=== PATIENT | male | born 1985 | race Caucasian/White ===

== ENCOUNTER 2016-07-08 05:26 | Emergency (ER) | payer OTHER ==
[~2016-07-08] VITALS: Ht 172.7 cm; Wt 82.0 kg
[~2016-07-08 05:26] MED LIST: AMITRIPTYLINE H50 MG PO; AMITRIPTYLINE H75 MG PO; AUGMENTIN875 MG PO; CATAPRES0.1 MG PO; Ceftin PO; DICYCLOMINE HCL20 MG PO; DOLOPHINE HCL10 MG PO; DURAGESIC100 MICROG TD; ELAVIL25 MG PO; ENDOCET 5-3251 EACH PO; FENTANYL1 EAC3 TD; FENTANYL1 EAC4 TD; FEOSOL325 MG PO; FERROUS SULFAT325 MG PO; K-Dur PO; LANTUS 10100 UNITS/ SC; LANTUS 3 M100 UNITS/ SC; LANTUS 3 M100 UNITS1; LANTUS 3 M100 UNITS1 SC; LANTUS100 UNIT/1 SQ; LEVEMIR FL100 UNIT/1 SC; LEVEMIR FL100 UNITS/ SC; LYRICA100 MG PO; LYRICA150 MG PO; LYRICA50 MG PO; MAG-OX400 M1 PO; METHADONE10 MG PO; METHADONE5 MG PO; METOCLOPRAM; NOVOLOG (UNITS1 UNIT SC; NOVOLOG 10100 UNITS/ SC; NOVOLOG PE100 UNITS/ PO; NOVOLOG PE100 UNITS/ SC; NOVOLOG100 UNIT/1 SQ; NUCYNTA50 MG PO; Norvasc PO; OPANA ER40 MG PO; OXYCODONE HCL15 MG PO; OXYCODONE HCL5 MG PO; OXYCODONE-APAP1 EAC6 PO; OXYCODONE15 MG PO; OXYCONTIN30 MG PO; OXYCONTIN40 MG PO; OxyCONTIN PO; PANCREAZE 10,51 EACH PO; PANTOPRAZOLE SO40 MG PO; PERCOCET 5-3251 EACH PO; PERCOCET 7.51 TABLET PO; PROMETHAZINE HC25 M1 PO; PROTONIX40 MG PO; Percocet 10/325,Endo PO; Protonix PO; RAMIPRIL10 MG PO; REGLAN10 MG PO; Reglan PO; SENNA-TIME S T1 EACH PO; TIZANIDINE HCL2 MG PO; TRAZODONE HCL50 MG PO; Zestril,Prinivil PO; oxyCODONE PO
[2016-07-08 05:44] LABS: POINT-OF-CARE METER ID UU13113778
[2016-07-08 06:25] LABS: HEMATOCRIT 28.7 % (38.0-50.0); MCH 29.1 PG (29.0-34.0); MCHC 34.1 G/DL (30.0-36.0); MCV 85.2 FL (86-99); MEAN PLAT.VOLUME 9.5 uM^3 (9.0-12.4); PLATELET COUNT 423 K/uL (156-360); RBC DIS.WIDTH-CV 14.2 % (11.8-14.6); RBC DIS.WIDTH-SD 42.4 % (39-53); RED BLOOD COUNT 3.37 M/uL (4.00-5.50); WHITE BLOOD COUNT 7.3 K/uL (4.1-10.2)
[2016-07-08 06:37] LABS: CHLORIDE 100 mEq/L (99-109); POTASSIUM 4.3 mEq/L (3.7-5.4); SODIUM 134 mEq/L (136-147)
[2016-07-08 06:38] LABS: GLUCOSE 348 mg/dL (70-99)
[2016-07-08 06:40] LABS: ANION GAP 13 MEQ/L (2-14)
[2016-07-08 06:42] LABS: GFR ESTIMATE (CALCULATED) > 59 mL/min/
[2016-07-08 06:43] LABS: UREA NITROGEN (BUN) 12 mg/dL (9-23)
[2016-07-08 08:27] LABS: ADD MIUA? YES; BILIRUBIN NEGATIVE; BLOOD MODERATE; COLOR YELLOW ((YELLOW)); GLUCOSE (STRIP) >=1000; KETONES 15; LEUKOCYTES NEGATIVE; NITRITE NEGATIVE; PROTEIN (STRIP) 30; SPECIFIC GRAVITY 1.033 (1.000-1.030)
[2016-07-08 08:44] LABS: BACTERIA NONE SEEN; CASTS NONE SEEN /LPF; CRYSTALS NONE SEEN; EPITHELIAL CELLS RARE; MUCUS NONE SEEN; PATHOLOGICAL CAST NONE SEEN; SMALL ROUND CELL NONE SEEN; UCUL ADDED? NO; WHITE BLOOD CELLS 0-5 /HPF (0-5); YEAST-LIKE CELL NONE SEEN
[2016-07-08 12:27] VITALS: BP 145/93
== END 2016-07-08 12:41 | disposition home or self-care (01) ==
LOC: EME 05:26
PROVIDERS: Emergency Medicine
DX: E11.65 Type 2 diabetes mellitus with hyperglycemia (principal); R11.2 Nausea with vomiting, unspecified; E86.0 Dehydration; G89.29 Other chronic pain; Z79.4 Long term (current) use of insulin; Z79.891 Long term (current) use of opiate analgesic; F17.200 Nicotine dependence, unspecified, uncomplicated
CPT/HCPCS: 80048; 81003; 82009; 82948; 83605; 85027; 99281; 99285; J2270; J2405; J7030

== ENCOUNTER 2016-10-14 12:05 | Inpatient (IN) | payer OTHER ==
[~2016-10-14] VITALS: Ht 172.7 cm; Wt 101.0 kg
[2016-10-14 12:59] LABS: EOSINOPHIL (%) 0.9 % (0-5); EOSINOPHIL COUNT 0.2 K/uL (0-0.3); HEMATOCRIT 22.9 % (38.0-50.0); IMMATURE GRANULOCYTE COUNT 0.2 K/uL; INSTRUMENT ABS NEUTROPHIL CT 13.5 K/uL; LYMPHOCYTE COUNT 2.6 K/uL (1.0-2.8); MCH 28.4 PG (29.0-34.0); MCHC 33.2 G/DL (30.0-36.0); MCV 85.4 FL (86-99); MEAN PLAT.VOLUME 8.9 uM^3 (9.0-12.4); MONOCYTE (%) 4.1 % (3-12); MONOCYTE COUNT 0.7 K/uL (0-0.8); NEUTROPHIL (%) 78.6 % (45-76); NEUTROPHIL COUNT 13.5 K/uL (1.8-6.4); PLATELET COUNT 543 K/uL (156-360); RBC DIS.WIDTH-CV 12.7 % (11.8-14.6); RBC DIS.WIDTH-SD 39.5 % (39-53); RED BLOOD COUNT 2.68 M/uL (4.00-5.50); WHITE BLOOD COUNT 17.2 K/uL (4.1-10.2)
[2016-10-14 13:09] LABS: CHLORIDE 92 mEq/L (99-109); POTASSIUM 4.1 mEq/L (3.7-5.4); SODIUM 131 mEq/L (136-147)
[2016-10-14 13:11] LABS: GLUCOSE 246 mg/dL (70-99)
[2016-10-14 13:12] LABS: ANION GAP 12 MEQ/L (2-14)
[2016-10-14 13:14] LABS: GFR ESTIMATE (CALCULATED) > 59 mL/min/
[2016-10-14 13:15] LABS: UREA NITROGEN (BUN) 13 mg/dL (9-23)
[2016-10-14] MEDS ORDERED: SANTYL30 GM TP (14:36)
[2016-10-14] MEDS ORDERED: ZOFRAN4 MG PO (14:36)
[2016-10-14] MEDS ORDERED: NOVOLOG 10100 UNITS/ SC (14:38)
[2016-10-14 16:18] LABS: POINT-OF-CARE METER ID UU13113702
[2016-10-14 17:02] LABS: ADD MIUA? YES; BILIRUBIN NEGATIVE; BLOOD MODERATE; COLOR YELLOW ((YELLOW)); GLUCOSE (STRIP) >=500; KETONES 5; LEUKOCYTES NEGATIVE; NITRITE NEGATIVE; PROTEIN (STRIP) 100; SPECIFIC GRAVITY 1.015 (1.000-1.030); UROBILINOGEN 0.2 MG/DL (0.2-1.0)
[2016-10-14 17:04] LABS: BACTERIA NONE SEEN /HPF; EPITHELIAL CELLS RARE /HPF; HYALINE CASTS 15-20 /LPF; MUCUS TRACE /LPF; RED BLOOD CELLS 0-5 /HPF (0-5); UCUL ADDED? NO; WHITE BLOOD CELLS 0-5 /HPF (0-5)
[2016-10-15 07:05] LABS: EOSINOPHIL (%) 1.3 % (0-5); EOSINOPHIL COUNT 0.2 K/uL (0-0.3); HEMATOCRIT 23.5 % (38.0-50.0); IMMATURE GRANULOCYTE (%) 1.5 % (0.0-0.7); IMMATURE GRANULOCYTE COUNT 0.2 K/uL; INSTRUMENT ABS NEUTROPHIL CT 9.8 K/uL; LYMPHOCYTE COUNT 2.2 K/uL (1.0-2.8); MCH 27.6 PG (29.0-34.0); MCHC 31.5 G/DL (30.0-36.0); MCV 87.7 FL (86-99); MEAN PLAT.VOLUME 9.2 uM^3 (9.0-12.4); MONOCYTE (%) 5.1 % (3-12); MONOCYTE COUNT 0.7 K/uL (0-0.8); NEUTROPHIL (%) 74.9 % (45-76); NEUTROPHIL COUNT 9.8 K/uL (1.8-6.4); PLATELET COUNT 406 K/uL (156-360); RBC DIS.WIDTH-CV 13.2 % (11.8-14.6); RBC DIS.WIDTH-SD 42.2 % (39-53); RED BLOOD COUNT 2.68 M/uL (4.00-5.50); WHITE BLOOD COUNT 13.1 K/uL (4.1-10.2)
[2016-10-15 07:50] LABS: ANION GAP 8 MEQ/L (2-14); CHLORIDE 97 MEQ/L (99-109); GFR ESTIMATE (CALCULATED) > 59 mL/min/; POTASSIUM 4.6 MEQ/L (3.7-5.4); SAMPLE HEMOLYSIS CHECK 0; SAMPLE ICTERIC CHECK 0; SAMPLE LIPEMIA CHECK 0; SODIUM 131 MEQ/L (136-147); UREA NITROGEN (BUN) 13 mg/dL (9-23)
[2016-10-15 07:51] LABS: GLUCOSE 476 mg/dL (70-99)
[2016-10-15 08:12] VITALS: BP 146/82
[2016-10-15 11:51] LABS: POINT-OF-CARE METER ID UU13113807
[2016-10-15 12:00] VITALS: BP 124/79
[2016-10-15 12:20] LABS: POINT-OF-CARE METER ID UU13113807
[2016-10-15 12:49] LABS: POINT-OF-CARE METER ID UU13113807
[2016-10-15 16:00] VITALS: BP 139/94
[2016-10-15 17:47] LABS: POINT-OF-CARE METER ID UU14149398
[2016-10-15 19:55] VITALS: BP 143/67
[2016-10-15 21:40] LABS: POINT-OF-CARE METER ID UU14149398
[2016-10-15 23:44] VITALS: BP 115/59
[2016-10-16 05:05] VITALS: BP 140/72
[2016-10-16 07:38] LABS: POINT-OF-CARE METER ID UU14149398
[2016-10-16 07:42] LABS: Estimated Average Glucose 344 mg/dL (70-123); HEMOGLOBIN A1c (GLYCOHEMOGLOB) 13.6 % HGB (Below 5.7)
[2016-10-16 08:38] VITALS: BP 121/74
[2016-10-16 12:00] VITALS: BP 120/69
[2016-10-16 12:41] LABS: POINT-OF-CARE METER ID UU14149398
[2016-10-16 16:00] VITALS: BP 149/94
[2016-10-16 16:57] LABS: POINT-OF-CARE METER ID UU14149398
[2016-10-16 19:48] VITALS: BP 122/76
[2016-10-16 21:04] LABS: POINT-OF-CARE METER ID UU14149398
[2016-10-17 00:13] VITALS: BP 135/81
[2016-10-17 03:40] LABS: POINT-OF-CARE METER ID UU14149398
[2016-10-17 04:32] VITALS: BP 129/79
[2016-10-17 08:02] LABS: GFR ESTIMATE (CALCULATED) > 59 mL/min/
[2016-10-17 08:03] VITALS: BP 130/80
[2016-10-17 08:37] LABS: POINT-OF-CARE METER ID UU14149398
[2016-10-17 09:25] LABS: AMPHETAMINES QUANT VALUE 0 NG/ML; BARBITUATES QUANT VALUE 0 NG/ML; BENZODIAZEPINES QUANT VALUE 0 NG/ML; BENZODIAZEPINES, URINE SCREEN Negative (200 ng/mL); MARIJUANA QUANT VALUE 0 NG/ML; OPIATES QUANTITATIVE VALUE 0 NG/ML; PHENCYCLIDINE QUANT VALUE 0 NG/ML
[2016-10-17 11:58] LABS: POINT-OF-CARE METER ID UU14149398
[2016-10-17 14:30] VITALS: BP 136/97
[2016-10-17 14:57] LABS: POINT-OF-CARE METER ID UU14149398
[2016-10-17 17:33] LABS: POINT-OF-CARE METER ID UU13113675
[2016-10-17 19:34] VITALS: BP 159/90
[2016-10-17 19:45] LABS: POINT-OF-CARE METER ID UU14149398
[2016-10-17 20:22] LABS: POINT-OF-CARE METER ID UU14149398; POINT-OF-CARE USER ID STWHLR41
[2016-10-17 20:29] LABS: POINT-OF-CARE METER ID UU14149398; POINT-OF-CARE USER ID STWHLR41
[2016-10-17 21:33] LABS: POINT-OF-CARE METER ID UU14149398
[2016-10-17 23:45] VITALS: BP 120/59
[2016-10-18] VITALS (13 sets, daily range): BP systolic 107–150; BP diastolic 7–91
[2016-10-18 03:23] LABS: POINT-OF-CARE METER ID UU14149398
[2016-10-18 07:01] LABS: HEMATOCRIT 21.9 % (38.0-50.0); MCH 26.9 PG (29.0-34.0); MCHC 30.1 G/DL (30.0-36.0); MCV 89.4 FL (86-99); MEAN PLAT.VOLUME 9.4 uM^3 (9.0-12.4); PLATELET COUNT 493 K/uL (156-360); RBC DIS.WIDTH-CV 13.6 % (11.8-14.6); RBC DIS.WIDTH-SD 44.6 % (39-53); RED BLOOD COUNT 2.45 M/uL (4.00-5.50); WHITE BLOOD COUNT 15.2 K/uL (4.1-10.2)
[2016-10-18 07:10] LABS: ANION GAP 9 MEQ/L (2-14); CHLORIDE 101 MEQ/L (99-109); GFR ESTIMATE (CALCULATED) > 59 mL/min/; POTASSIUM 4.6 MEQ/L (3.7-5.4); SAMPLE HEMOLYSIS CHECK 0; SAMPLE ICTERIC CHECK 0; SAMPLE LIPEMIA CHECK 0; SODIUM 133 MEQ/L (136-147); UREA NITROGEN (BUN) 18 mg/dL (9-23)
[2016-10-18 07:12] LABS: GLUCOSE 221 mg/dL (70-99)
[2016-10-18 08:17] LABS: POINT-OF-CARE METER ID UU14149398
[2016-10-18 11:27] LABS: POINT-OF-CARE METER ID UU14149398
[2016-10-18 16:02] LABS: POINT-OF-CARE METER ID UU13113807
[2016-10-18 21:16] LABS: POINT-OF-CARE METER ID UU13113807
[2016-10-19] VITALS (9 sets, daily range): BP systolic 125–169; BP diastolic 78–99
[2016-10-19 02:49] LABS: POINT-OF-CARE METER ID UU13113807
[2016-10-19 06:25] LABS: GFR ESTIMATE (CALCULATED) > 59 mL/min/
[2016-10-19 06:26] LABS: ANION GAP 9 MEQ/L (2-14); CHLORIDE 96 MEQ/L (99-109); GFR ESTIMATE (CALCULATED) > 59 mL/min/; GLUCOSE 175 mg/dL (70-99); POTASSIUM 4.5 MEQ/L (3.7-5.4); SAMPLE HEMOLYSIS CHECK 0; SAMPLE ICTERIC CHECK 0; SAMPLE LIPEMIA CHECK 0; SODIUM 131 MEQ/L (136-147); UREA NITROGEN (BUN) 22 mg/dL (9-23)
[2016-10-19 06:28] LABS: HEMATOCRIT 27.5 % (38.0-50.0); MCH 27.9 PG (29.0-34.0); MCHC 31.6 G/DL (30.0-36.0); MCV 88.1 FL (86-99); MEAN PLAT.VOLUME 9.4 uM^3 (9.0-12.4); PLATELET COUNT 486 K/uL (156-360); RBC DIS.WIDTH-CV 13.8 % (11.8-14.6); RBC DIS.WIDTH-SD 44.3 % (39-53)
[2016-10-19 07:00] LABS: RED BLOOD COUNT 3.12 M/uL (4.00-5.50); WHITE BLOOD COUNT 10.3 K/uL (4.1-10.2)
[2016-10-19 08:05] LABS: POINT-OF-CARE METER ID UU13113807
[2016-10-19 13:05] LABS: POINT-OF-CARE METER ID UU13113807
[2016-10-19 18:02] LABS: POINT-OF-CARE METER ID UU13113807
[2016-10-19 21:23] LABS: POINT-OF-CARE METER ID UU13113807
[2016-10-20 03:00] VITALS: BP 127/82
[2016-10-20 03:24] LABS: POINT-OF-CARE METER ID UU13113807
[2016-10-20 07:36] VITALS: BP 142/58
[2016-10-20 07:41] LABS: HEMATOCRIT 27.9 % (38.0-50.0); MCH 27.7 PG (29.0-34.0); MCHC 31.5 G/DL (30.0-36.0); MCV 87.7 FL (86-99); MEAN PLAT.VOLUME 9.4 uM^3 (9.0-12.4); PLATELET COUNT 602 K/uL (156-360); RBC DIS.WIDTH-CV 14.1 % (11.8-14.6); RBC DIS.WIDTH-SD 45.3 % (39-53); RED BLOOD COUNT 3.18 M/uL (4.00-5.50); WHITE BLOOD COUNT 10.8 K/uL (4.1-10.2)
[2016-10-20 08:18] LABS: ANION GAP 9 MEQ/L (2-14); CHLORIDE 96 MEQ/L (99-109); GFR ESTIMATE (CALCULATED) > 59 mL/min/; SAMPLE HEMOLYSIS CHECK 0; SAMPLE ICTERIC CHECK 0; SAMPLE LIPEMIA CHECK 0; SODIUM 133 MEQ/L (136-147); UREA NITROGEN (BUN) 28 mg/dL (9-23)
[2016-10-20 08:19] LABS: GLUCOSE 305 mg/dL (70-99)
[2016-10-20 11:01] VITALS: BP 140/92
[2016-10-20 12:25] LABS: POINT-OF-CARE METER ID UU13113807
[2016-10-20 15:40] VITALS: BP 138/88
[2016-10-20 17:21] LABS: POINT-OF-CARE METER ID UU13113807
[2016-10-20 19:20] VITALS: BP 143/98
[2016-10-20 21:51] LABS: POINT-OF-CARE METER ID UU13113807
[2016-10-20 23:10] VITALS: BP 123/82
[2016-10-21 03:00] VITALS: BP 119/70
[2016-10-21 03:30] LABS: POINT-OF-CARE METER ID UU13113807
[2016-10-21 07:43] VITALS: BP 120/75
[2016-10-21 08:48] LABS: POINT-OF-CARE METER ID UU13113807
[2016-10-21 13:01] LABS: POINT-OF-CARE METER ID UU13113807
[2016-10-21 15:47] VITALS: BP 139/75
[2016-10-21 17:37] LABS: POINT-OF-CARE METER ID UU13113807
[2016-10-21 21:01] VITALS: BP 130/80
[2016-10-22 00:44] VITALS: BP 110/55
[2016-10-22 03:31] LABS: POINT-OF-CARE METER ID UU14149398
[2016-10-22 08:00] VITALS: BP 128/80
[2016-10-22 08:35] LABS: POINT-OF-CARE METER ID UU14149398
[2016-10-22 11:51] LABS: POINT-OF-CARE METER ID UU13113807
[2016-10-22 11:52] LABS: POINT-OF-CARE METER ID UU13113807
[2016-10-22 12:00] VITALS: BP 128/74
[2016-10-22 12:40] LABS: POINT-OF-CARE METER ID UU14149398
[2016-10-22 16:00] VITALS: BP 152/72
[2016-10-22 17:31] LABS: POINT-OF-CARE METER ID UU14149398
[2016-10-22 20:50] VITALS: BP 120/50
[2016-10-22 21:39] LABS: POINT-OF-CARE METER ID UU14149398
[2016-10-23 00:17] VITALS: BP 110/60
[2016-10-23 03:40] LABS: POINT-OF-CARE METER ID UU13113807
[2016-10-23 05:14] VITALS: BP 110/55
[2016-10-23 08:44] VITALS: BP 115/70
[2016-10-23 08:51] LABS: POINT-OF-CARE METER ID UU13113807
[2016-10-23 10:13] LABS: ANION GAP 7 MEQ/L (2-14); CHLORIDE 99 MEQ/L (99-109); POTASSIUM 5.1 MEQ/L (3.7-5.4); SAMPLE HEMOLYSIS CHECK 0; SAMPLE ICTERIC CHECK 0; SAMPLE LIPEMIA CHECK 0; SODIUM 134 MEQ/L (136-147)
[2016-10-23 10:19] LABS: GFR ESTIMATE (CALCULATED) > 59 mL/min/; GLUCOSE 219 mg/dL (70-99); UREA NITROGEN (BUN) 32 mg/dL (9-23)
[2016-10-23 12:29] LABS: POINT-OF-CARE METER ID UU13113807
[2016-10-23 15:42] VITALS: BP 120/79
[2016-10-23 17:31] LABS: POINT-OF-CARE METER ID UU13113807
[2016-10-23 20:00] VITALS: BP 124/84
[2016-10-23 22:23] LABS: POINT-OF-CARE METER ID UU13113807
[2016-10-24] VITALS (7 sets, daily range): BP systolic 115–149; BP diastolic 62–100
[2016-10-24 03:08] LABS: POINT-OF-CARE METER ID UU13113807
[2016-10-24 08:32] LABS: POINT-OF-CARE METER ID UU13113698
[2016-10-24 11:37] LABS: POINT-OF-CARE METER ID UU13113698
[2016-10-24 15:35] LABS: POINT-OF-CARE METER ID UU13113698
[2016-10-24 17:08] LABS: POINT-OF-CARE METER ID UU13113698
[2016-10-25 03:20] VITALS: BP 122/62
[2016-10-25 03:34] LABS: POINT-OF-CARE METER ID UU13113698
[2016-10-25 04:14] LABS: POINT-OF-CARE METER ID UU13113698
[2016-10-25 05:00] LABS: CHLORIDE 101 mEq/L (99-109); POTASSIUM 4.4 mEq/L (3.7-5.4); SODIUM 138 mEq/L (136-147)
[2016-10-25 05:02] LABS: GLUCOSE 100 mg/dL (70-99)
[2016-10-25 05:03] LABS: ANION GAP 11 MEQ/L (2-14)
[2016-10-25 05:05] LABS: GFR ESTIMATE (CALCULATED) > 59 mL/min/
[2016-10-25 05:06] LABS: UREA NITROGEN (BUN) 35 mg/dL (9-23)
[2016-10-25 08:13] VITALS: BP 135/85
[2016-10-25 08:54] LABS: POINT-OF-CARE METER ID UU13113698
[2016-10-25 12:56] LABS: POINT-OF-CARE METER ID UU13113698
[2016-10-25 15:30] VITALS: BP 136/85
[2016-10-25 17:25] LABS: POINT-OF-CARE METER ID UU13113698
[2016-10-25 20:09] LABS: POINT-OF-CARE METER ID UU13113698
[2016-10-25 20:16] VITALS: BP 134/88
[2016-10-25 21:32] LABS: POINT-OF-CARE METER ID UU13113698
[2016-10-26 00:04] VITALS: BP 123/74; BP 148/80
[2016-10-26 00:07] VITALS: BP 123/74
[2016-10-26 03:42] LABS: POINT-OF-CARE METER ID UU13113698
[2016-10-26 05:00] VITALS: BP 116/73
[2016-10-26 07:38] VITALS: BP 120/84
[2016-10-26 08:31] LABS: POINT-OF-CARE METER ID UU13113698
[2016-10-26 12:07] LABS: POINT-OF-CARE METER ID UU13113698
[2016-10-26 15:38] LABS: POINT-OF-CARE METER ID UU13113698
[2016-10-26 16:15] VITALS: BP 131/64
[2016-10-26 16:51] LABS: POINT-OF-CARE METER ID UU13113698
[2016-10-26 21:20] VITALS: BP 134/76
[2016-10-27 03:53] VITALS: BP 138/81
[2016-10-27 04:14] LABS: POINT-OF-CARE METER ID UU13113807
[2016-10-27 05:30] VITALS: BP 121/74
[2016-10-27 08:20] VITALS: BP 138/91
[2016-10-27 09:12] LABS: POINT-OF-CARE METER ID UU13113807
[2016-10-27 12:05] VITALS: BP 134/86
[2016-10-27 12:06] LABS: POINT-OF-CARE METER ID UU13113698
[2016-10-27 12:14] LABS: POINT-OF-CARE METER ID UU13113698; POINT-OF-CARE USER ID AHSUCEG
[2016-10-27 14:18] LABS: POINT-OF-CARE METER ID UU13113807
[2016-10-27 17:49] LABS: POINT-OF-CARE METER ID UU13113807
[2016-10-27 22:08] LABS: POINT-OF-CARE METER ID UU13113698
[2016-10-28] VITALS: BP 120/72
[2016-10-28 03:18] LABS: POINT-OF-CARE METER ID UU13113807
[2016-10-28 08:05] VITALS: BP 128/80
[2016-10-28 08:19] LABS: POINT-OF-CARE METER ID UU13113807; POINT-OF-CARE USER ID 606021404
[2016-10-28 08:22] LABS: HEMATOCRIT 25.2 % (38.0-50.0); MCH 27.3 PG (29.0-34.0); MCHC 30.6 G/DL (30.0-36.0); MCV 89.4 FL (86-99); PLATELET COUNT 443 K/uL (156-360); RBC DIS.WIDTH-CV 14.5 % (11.8-14.6); RBC DIS.WIDTH-SD 46.7 % (39-53); RED BLOOD COUNT 2.82 M/uL (4.00-5.50); WHITE BLOOD COUNT 11.5 K/uL (4.1-10.2)
[2016-10-28 08:43] LABS: GFR ESTIMATE (CALCULATED) > 59 mL/min/
[2016-10-28 12:34] LABS: POINT-OF-CARE METER ID UU13113807
[2016-10-28 15:55] VITALS: BP 136/87
[2016-10-28 17:11] LABS: POINT-OF-CARE METER ID UU13113698; POINT-OF-CARE USER ID 606021404
[2016-10-28 20:00] VITALS: BP 127/70
[2016-10-28 22:03] LABS: POINT-OF-CARE METER ID UU13113698
[2016-10-29] VITALS: BP 117/64
[2016-10-29 03:33] LABS: POINT-OF-CARE METER ID UU13113807
[2016-10-29 04:00] VITALS: BP 128/67
[2016-10-29 07:59] LABS: POINT-OF-CARE METER ID UU13113807
[2016-10-29 08:00] VITALS: BP 121/77
[2016-10-29 11:32] LABS: POINT-OF-CARE METER ID UU13113807
[2016-10-29 12:00] VITALS: BP 115/74
[2016-10-29 16:00] VITALS: BP 115/76
[2016-10-29 16:39] LABS: POINT-OF-CARE METER ID UU13113807
[2016-10-29 23:48] VITALS: BP 115/70
[2016-10-30 03:21] LABS: POINT-OF-CARE METER ID UU13113807
[2016-10-30 04:12] VITALS: BP 114/76
[2016-10-30 08:00] VITALS: BP 140/58
[2016-10-30 08:31] LABS: POINT-OF-CARE METER ID UU13113807
[2016-10-30 09:45] LABS: POINT-OF-CARE METER ID UU13113807
[2016-10-30 12:59] LABS: POINT-OF-CARE METER ID UU13113807
[2016-10-30 13:07] LABS: POINT-OF-CARE METER ID UU13113807
[2016-10-30 15:19] VITALS: BP 134/63
[2016-10-30 17:13] LABS: POINT-OF-CARE METER ID UU14149397
[2016-10-30 20:00] VITALS: BP 123/68
[2016-10-30 21:38] LABS: POINT-OF-CARE METER ID UU14149397
[2016-10-30 23:38] VITALS: BP 122/67
[2016-10-31 03:49] LABS: POINT-OF-CARE METER ID UU14149397
[2016-10-31 07:02] LABS: POINT-OF-CARE METER ID UU14188577
[2016-10-31 08:29] VITALS: BP 122/78
[2016-10-31 16:11] VITALS: BP 132/90
[2016-10-31 23:47] VITALS: BP 133/81
[2016-11-01 05:56] VITALS: BP 117/77
[2016-11-01 16:54] VITALS: BP 120/74
[2016-11-01 23:30] VITALS: BP 93/59
[2016-11-02 04:00] VITALS: BP 100/59
[2016-11-02 06:02] LABS: GFR ESTIMATE (CALCULATED) > 59 mL/min/
[2016-11-02 08:00] VITALS: BP 128/78
[2016-11-02 16:36] VITALS: BP 102/80
[2016-11-02 21:00] VITALS: BP 112/80
[2016-11-02 21:46] LABS: POINT-OF-CARE METER ID UU14188577
[2016-11-03 04:00] VITALS: BP 124/78
[2016-11-03 07:00] VITALS: BP 115/96
[2016-11-03] MEDS ORDERED: FLORASTOR250 MG PO (10:27)
[2016-11-03 12:03] LABS: POINT-OF-CARE METER ID UU14188577
== END 2016-11-03 14:45 | disposition home or self-care (01) | DRG 571 ==
LOC: EME 12:05 → 4SOUTH 23:25 → EDOF 23:25 → 4SOUTH 10-15 07:44 → 3EAST 10-30 14:31
PROVIDERS: Health Educator; Internal Medicine Endocrinology, Diabetes & Metabolism; Internal Medicine Infectious Disease; Physician Assistant; Surgery; Thoracic Surgery (Cardiothoracic Vascular Surgery)
DX: L03.116 Cellulitis of left lower limb (principal); M86.672 Other chronic osteomyelitis, left ankle and foot; E10.42 Type 1 diabetes mellitus with diabetic polyneuropathy; E10.65 Type 1 diabetes mellitus with hyperglycemia; M89.572 Osteolysis, left ankle and foot; I10 Essential (primary) hypertension; E87.1 Hypo-osmolality and hyponatremia; F11.20 Opioid dependence, uncomplicated; E10.43 Type 1 diabetes mellitus with diabetic autonomic (poly)neuropathy; K31.84 Gastroparesis; L02.612 Cutaneous abscess of left foot; D50.9 Iron deficiency anemia, unspecified; G89.4 Chronic pain syndrome; M79.7 Fibromyalgia; B95.62 Methicillin resistant Staphylococcus aureus infection as the cause of diseases classified elsewhere; B95.5 Unspecified streptococcus as the cause of diseases classified elsewhere
CPT/HCPCS: 71010; 73630; 76937; 80048; 80200; 80202; 80306 90; 81003; 82565; 82948; 83036; 83605; 84520; 85025; 85027; 85651; 86140; 86850; 86900; 86901; 86920; 87040; 87070; 87075; 87077; 87147; 87186; 87205; 88305; 88311; 99281; 99285; J0295; J0330; J1170; J1644; J1815; J1940; J2250; J2270; J2405; J2543; J3010; J3260; J3370; J7030; J7050; P9016; S0020

== ENCOUNTER 2016-12-08 22:33 | Inpatient (IN) | payer OTHER ==
[~2016-12-08] VITALS: Ht 172.7 cm; Wt 86.1 kg
[~2016-12-08 22:33] MED LIST changes: +FLORASTOR250 MG PO; +SANTYL30 GM TP; +ZOFRAN4 MG PO
[2016-12-09 00:20] LABS: CARBON DIOXIDE (BICARBONATE) 31.2 MEQ/L (20-31)
[2016-12-09 00:24] LABS: CHLORIDE 90 mEq/L (99-109); POTASSIUM 3.8 mEq/L (3.7-5.4); SODIUM 129 mEq/L (136-147)
[2016-12-09 00:27] LABS: GLUCOSE 156 mg/dL (70-99)
[2016-12-09 00:28] LABS: ANION GAP 12 MEQ/L (2-14); TOTAL BILIRUBIN 0.7 mg/dL (0.0-1.0)
[2016-12-09 00:30] LABS: ALKALINE PHOSPHATASE 153 IU/L (3-129); EOSINOPHIL (%) 1.8 % (0-5); EOSINOPHIL COUNT 0.2 K/uL (0-0.3); GFR ESTIMATE (CALCULATED) 40 mL/min/; HEMATOCRIT 31.4 % (38.0-50.0); IMMATURE GRANULOCYTE (%) 0.4 % (0.0-0.7); INSTRUMENT ABS NEUTROPHIL CT 5.8 K/uL; LYMPHOCYTE COUNT 1.8 K/uL (1.0-2.8); MCH 25.7 PG (29.0-34.0); MCHC 33.8 G/DL (30.0-36.0); MEAN PLAT.VOLUME 9.9 uM^3 (9.0-12.4); MONOCYTE (%) 7.3 % (3-12); MONOCYTE COUNT 0.6 K/uL (0-0.8); NEUTROPHIL (%) 68.7 % (45-76); NEUTROPHIL COUNT 5.8 K/uL (1.8-6.4); PLATELET COUNT 305 K/uL (156-360); RBC DIS.WIDTH-SD 38.4 % (39-53); RED BLOOD COUNT 4.13 M/uL (4.00-5.50); WHITE BLOOD COUNT 8.5 K/uL (4.1-10.2)
[2016-12-09 00:31] LABS: UREA NITROGEN (BUN) 41 mg/dL (9-23)
[2016-12-09 00:32] LABS: DIRECT BILIRUBIN 0.3 mg/dL (0.0-0.3)
[2016-12-09 00:34] LABS: LIPASE 8 U/L (1.0-51.0)
[2016-12-09 01:41] LABS: ADD MIUA? YES; BILIRUBIN NEGATIVE; BLOOD MODERATE; COLOR YELLOW ((YELLOW)); GLUCOSE (STRIP) >=500; KETONES NEGATIVE; LEUKOCYTES NEGATIVE; NITRITE NEGATIVE; PROTEIN (STRIP) NEGATIVE; SPECIFIC GRAVITY 1.015 (1.000-1.030); UROBILINOGEN 0.2 MG/DL (0.2-1.0)
[2016-12-09 01:46] LABS: BACTERIA RARE /HPF; EPITHELIAL CELLS NONE SEEN /HPF; MUCUS NONE SEEN /LPF; RED BLOOD CELLS 0-5 /HPF (0-5); UCUL ADDED? NO; WHITE BLOOD CELLS 0-5 /HPF (0-5)
[2016-12-09 01:49] LABS: AMPHETAMINE NEGATIVE (500 ng/mL); BENZODIAZEPINES NEGATIVE (150 ng/mL); COCAINE NEGATIVE (150 ng/mL); METHADONE PRESUMPTIVE POSITIVE (200 ng/mL); METHAMPHETAMINE NEGATIVE (500 ng/mL); OPIATES (MORPHINE) NEGATIVE (100 ng/mL); PHENCYCLIDINE NEGATIVE (25 ng/mL); THC CANNABINOIDS NEGATIVE (50 ng/mL); TRICYCLIC ANTIDEPRESSANTS NEGATIVE (300 ng/mL)
[2016-12-09 01:50] LABS: BARBITURATES NEGATIVE (200 ng/mL); INTERNAL CONTROLS VALID? YES; OXYCODONE PRESUMPTIVE POSITIVE (100 ng/mL); PROPOXYPHENE NEGATIVE (300 ng/mL)
[2016-12-09] MEDS ORDERED: METHADONE10 MG PO (01:53)
[2016-12-09] MEDS ORDERED: RAMIPRIL1.25 MG PO (01:55)
[2016-12-09] MEDS ORDERED: VANCOMYCIN IV (01:56)
[2016-12-09 07:59] LABS: INTACT PARATHYROID HORMONE 89 pg/mL (10-69)
[2016-12-09 11:55] LABS: POINT-OF-CARE METER ID UU13113702
[2016-12-09 12:13] VITALS: BP 111/76
[2016-12-09 13:42] VITALS: BP 121/72
[2016-12-09 15:00] LABS: POINT-OF-CARE METER ID UU14100415
[2016-12-09 15:00] LABS: POINT-OF-CARE METER ID UU14100415
[2016-12-09 15:42] VITALS: BP 112/63
[2016-12-09 17:09] LABS: POINT-OF-CARE METER ID UU14188577
[2016-12-09 20:10] VITALS: BP 130/65
[2016-12-10 00:20] VITALS: BP 150/100
[2016-12-10 04:06] VITALS: BP 139/84
[2016-12-10 06:53] LABS: METH RESISTANT S AUREUS PCR NEGATIVE (NEGATIVE); PROBE CHECK PASS; SPECIMEN PROCESSING CONTROL PASS
[2016-12-10 07:30] LABS: EOSINOPHIL (%) 2.8 % (0-5); EOSINOPHIL COUNT 0.2 K/uL (0-0.3); HEMATOCRIT 32.5 % (38.0-50.0); IMMATURE GRANULOCYTE (%) 0.4 % (0.0-0.7); INSTRUMENT ABS NEUTROPHIL CT 4.3 K/uL; LYMPHOCYTE COUNT 1.8 K/uL (1.0-2.8); MCH 26.2 PG (29.0-34.0); MCHC 32.3 G/DL (30.0-36.0); MEAN PLAT.VOLUME 10.8 uM^3 (9.0-12.4); MONOCYTE (%) 6.9 % (3-12); MONOCYTE COUNT 0.5 K/uL (0-0.8); NEUTROPHIL (%) 63.3 % (45-76); NEUTROPHIL COUNT 4.3 K/uL (1.8-6.4); PLATELET COUNT 267 K/uL (156-360); RBC DIS.WIDTH-CV 14.4 % (11.8-14.6); RBC DIS.WIDTH-SD 42.7 % (39-53); RED BLOOD COUNT 4.01 M/uL (4.00-5.50); WHITE BLOOD COUNT 6.8 K/uL (4.1-10.2)
[2016-12-10 07:48] VITALS: BP 132/77
[2016-12-10 07:59] LABS: ANION GAP 9 MEQ/L (2-14); CHLORIDE 103 MEQ/L (99-109); GLUCOSE 126 mg/dL (70-99); POTASSIUM 3.7 MEQ/L (3.7-5.4); SAMPLE HEMOLYSIS CHECK 0; SAMPLE ICTERIC CHECK 0; SAMPLE LIPEMIA CHECK 0; UREA NITROGEN (BUN) 38 mg/dL (9-23); URIC ACID 4.7 mg/dL (3.1-9.2)
[2016-12-10 08:01] LABS: GFR ESTIMATE (CALCULATED) > 59 mL/min/; SODIUM 138 MEQ/L (136-147)
[2016-12-10 23:36] VITALS: BP 116/75
[2016-12-11 07:38] LABS: UR CREATININE CONCENTRATION 64.8 MG/DL
[2016-12-11 07:46] LABS: ANION GAP 7 MEQ/L (2-14); CHLORIDE 97 MEQ/L (99-109); GFR ESTIMATE (CALCULATED) > 59 mL/min/; SAMPLE HEMOLYSIS CHECK 0; SAMPLE ICTERIC CHECK 0; SAMPLE LIPEMIA CHECK 0; UREA NITROGEN (BUN) 37 mg/dL (9-23)
[2016-12-11 07:48] LABS: GLUCOSE 300 mg/dL (70-99); POTASSIUM 4.5 MEQ/L (3.7-5.4); SODIUM 131 MEQ/L (136-147)
[2016-12-11 08:25] VITALS: BP 164/88
[2016-12-11] MEDS ORDERED: DOXYCYCLINE HY100 MG PO (11:33)
[2016-12-11] MEDS ORDERED: LYRICA75 MG PO (11:33)
[2016-12-11] MEDS ORDERED: COZAAR25 MG PO (11:33)
== END 2016-12-11 14:31 | disposition home or self-care (01) | DRG 683 ==
LOC: EME 22:33 → EDOF 12-09 02:47 → 3EAST 12-09 02:47
PROVIDERS: Emergency Medicine; Hospitalist; Internal Medicine; Internal Medicine Nephrology
DX: N17.9 Acute kidney failure, unspecified (principal); K86.0 Alcohol-induced chronic pancreatitis; E87.1 Hypo-osmolality and hyponatremia; F11.20 Opioid dependence, uncomplicated; E10.22 Type 1 diabetes mellitus with diabetic chronic kidney disease; E10.21 Type 1 diabetes mellitus with diabetic nephropathy; E10.42 Type 1 diabetes mellitus with diabetic polyneuropathy; E10.65 Type 1 diabetes mellitus with hyperglycemia; E10.43 Type 1 diabetes mellitus with diabetic autonomic (poly)neuropathy; I12.9 Hypertensive chronic kidney disease with stage 1 through stage 4 chronic kidney disease, or unspecified chronic kidney disease; I73.9 Peripheral vascular disease, unspecified; T81.89XA Other complications of procedures, not elsewhere classified, initial encounter; G89.4 Chronic pain syndrome; K31.84 Gastroparesis; K59.03 Drug induced constipation; K21.9 Gastro-esophageal reflux disease without esophagitis; M79.7 Fibromyalgia; N18.9 Chronic kidney disease, unspecified; N20.0 Calculus of kidney; D50.9 Iron deficiency anemia, unspecified; E10.319 Type 1 diabetes mellitus with unspecified diabetic retinopathy without macular edema; E86.0 Dehydration; Y95 Nosocomial condition; F17.220 Nicotine dependence, chewing tobacco, uncomplicated; E87.8 Other disorders of electrolyte and fluid balance, not elsewhere classified; Z86.14 Personal history of Methicillin resistant Staphylococcus aureus infection; Z79.4 Long term (current) use of insulin; Z89.422 Acquired absence of other left toe(s); Z83.3 Family history of diabetes mellitus
CPT/HCPCS: 71020; 72131; 74176; 76770; 80048; 80069; 80076; 80202; 81003; 82272; 82330; 82533 91; 82570; 82803; 82948; 83605; 83690; 83735; 83935; 83970; 84156; 84300; 84550; 85025; 85027; 87040; 87641; 89190; 99281; 99285; A6260; J1644; J1815; J1956; J2543; J2765; J7030

== ENCOUNTER 2017-05-15 21:26 | Inpatient (IN) | payer OTHER ==
[~2017-05-15] VITALS: Ht 172.7 cm; Wt 92.4 kg
[~2017-05-15 21:26] MED LIST changes: +COZAAR25 MG PO; +DOXYCYCLINE HY100 MG PO; +INSULIN PUMP MC; +LYRICA75 MG PO; +RAMIPRIL1.25 MG PO; +VANCOMYCIN IV
[2017-05-15 21:49] LABS: HEMATOCRIT 39.8 % (38.0-50.0); MCH 28.7 PG (29.0-34.0); MCHC 34.7 G/DL (30.0-36.0); MCV 82.7 FL (86-99); MEAN PLAT.VOLUME 10.5 uM^3 (9.0-12.4); PLATELET COUNT 290 K/uL (156-360); RBC DIS.WIDTH-CV 11.6 % (11.8-14.6); RBC DIS.WIDTH-SD 34.9 % (39-53); RED BLOOD COUNT 4.81 M/uL (4.00-5.50); WHITE BLOOD COUNT 7.2 K/uL (4.1-10.2)
[2017-05-15 21:57] LABS: CHLORIDE 100 mEq/L (99-109); POTASSIUM 3.9 mEq/L (3.7-5.4); SODIUM 136 mEq/L (136-147)
[2017-05-15 22:01] LABS: ANION GAP 11 MEQ/L (2-14)
[2017-05-15 22:02] LABS: TOTAL BILIRUBIN 0.4 mg/dL (0.0-1.0)
[2017-05-15 22:03] LABS: ALKALINE PHOSPHATASE 184 IU/L (3-129); GFR ESTIMATE (CALCULATED) > 59 mL/min/
[2017-05-15 22:04] LABS: UREA NITROGEN (BUN) 16 mg/dL (9-23)
[2017-05-15 22:07] LABS: GLUCOSE 614 mg/dL (70-99)
[2017-05-15 22:49] LABS: MAGNESIUM 1.7 mg/dL (1.3-2.7)
[2017-05-15 22:56] LABS: LIPASE 10 U/L (1.0-51.0)
[2017-05-15 23:02] LABS: TROP-I INTERPRETATION NEGATIVE; TROPONIN-I < 0.01 ng/mL (0.0-0.30)
[2017-05-16] MEDS ORDERED: LYRICA150 MG PO (00:09)
[2017-05-16 01:21] LABS: ADD MIUA? YES; BILIRUBIN NEGATIVE; BLOOD MODERATE; COLOR STRAW ((YELLOW)); GLUCOSE (STRIP) >=500; KETONES 5; LEUKOCYTES NEGATIVE; NITRITE NEGATIVE; PROTEIN (STRIP) 100; SPECIFIC GRAVITY 1.033 (1.000-1.030); UROBILINOGEN 0.2 MG/DL (0.2-1.0)
[2017-05-16 01:24] LABS: BACTERIA NONE SEEN /HPF; EPITHELIAL CELLS RARE /HPF; MUCUS NONE SEEN /LPF; UCUL ADDED? NO; WHITE BLOOD CELLS 0-5 /HPF (0-5)
[2017-05-16 07:58] LABS: POINT-OF-CARE METER ID UU13113702
[2017-05-16 10:18] LABS: POINT-OF-CARE METER ID UU13113702
[2017-05-16 12:16] LABS: HEMATOCRIT 34.4 % (38.0-50.0); MCH 29.1 PG (29.0-34.0); MCHC 34.3 G/DL (30.0-36.0); MCV 84.7 FL (86-99); MEAN PLAT.VOLUME 10.6 uM^3 (9.0-12.4); PLATELET COUNT 245 K/uL (156-360); RBC DIS.WIDTH-CV 11.8 % (11.8-14.6); RBC DIS.WIDTH-SD 36.3 % (39-53); RED BLOOD COUNT 4.06 M/uL (4.00-5.50); WHITE BLOOD COUNT 7.4 K/uL (4.1-10.2)
[2017-05-16 12:20] LABS: CHLORIDE 107 mEq/L (99-109); POTASSIUM 3.5 mEq/L (3.7-5.4); SODIUM 137 mEq/L (136-147)
[2017-05-16 12:23] LABS: ANION GAP 8 MEQ/L (2-14)
[2017-05-16 12:25] LABS: GFR ESTIMATE (CALCULATED) > 59 mL/min/
[2017-05-16 12:26] LABS: GLUCOSE 266 mg/dL (70-99); UREA NITROGEN (BUN) 16 mg/dL (9-23)
[2017-05-16 13:29] VITALS: BP 119/78
[2017-05-16 14:55] VITALS: BP 139/94
[2017-05-16 17:47] LABS: POINT-OF-CARE METER ID UU14149397
[2017-05-16 20:11] VITALS: BP 133/79
[2017-05-16 20:16] LABS: POINT-OF-CARE METER ID UU14149397; POINT-OF-CARE USER ID 610211320
[2017-05-16 23:10] VITALS: BP 162/84
[2017-05-17 03:51] VITALS: BP 155/94
[2017-05-17 06:37] LABS: POINT-OF-CARE METER ID UU14117124
[2017-05-17 06:49] LABS: EOSINOPHIL (%) 4.7 % (0-5); EOSINOPHIL COUNT 0.3 K/uL (0-0.3); IMMATURE GRANULOCYTE (%) 0.3 % (0.0-0.7); INSTRUMENT ABS NEUTROPHIL CT 2.7 K/uL; LYMPHOCYTE COUNT 2.6 K/uL (1.0-2.8); MCH 29.3 PG (29.0-34.0); MCHC 34.7 G/DL (30.0-36.0); MCV 84.4 FL (86-99); MEAN PLAT.VOLUME 11.2 uM^3 (9.0-12.4); MONOCYTE (%) 7.4 % (3-12); MONOCYTE COUNT 0.5 K/uL (0-0.8); NEUTROPHIL (%) 43.9 % (45-76); NEUTROPHIL COUNT 2.7 K/uL (1.8-6.4); PLATELET COUNT 210 K/uL (156-360); RBC DIS.WIDTH-CV 11.9 % (11.8-14.6); RBC DIS.WIDTH-SD 36.5 % (39-53); RED BLOOD COUNT 3.79 M/uL (4.00-5.50); WHITE BLOOD COUNT 6.1 K/uL (4.1-10.2)
[2017-05-17 07:03] VITALS: BP 137/94
[2017-05-17 07:16] LABS: ANION GAP 8 MEQ/L (2-14); CHLORIDE 105 MEQ/L (99-109); GFR ESTIMATE (CALCULATED) > 59 mL/min/; GLUCOSE 340 mg/dL (70-99); SAMPLE HEMOLYSIS CHECK 0; SAMPLE ICTERIC CHECK 0; SAMPLE LIPEMIA CHECK 0; SODIUM 133 MEQ/L (136-147); UREA NITROGEN (BUN) 22 mg/dL (9-23)
[2017-05-17 07:18] LABS: POTASSIUM 4.3 MEQ/L (3.7-5.4)
[2017-05-17 11:18] LABS: POINT-OF-CARE METER ID UU14149397
[2017-05-17] MEDS ORDERED: ZOFRAN4 MG PO (12:35)
[2017-05-17] MEDS ORDERED: BACTRIM,SEPT1 TABLE1 PO (12:35)
[2017-05-17 22:53] LABS: POINT-OF-CARE METER ID UU13113702
[2017-05-17 22:54] LABS: POINT-OF-CARE METER ID UU13113778
== END 2017-05-17 14:06 | disposition home or self-care (01) | DRG 919 ==
LOC: EME 21:26 → EDOF 05-16 02:44 → ENRESERV 05-16 02:50 → ENRESERVTM 05-16 11:18 → ENRESERV 05-16 11:18 → ENRESERVDT 05-16 11:18 → ENRESERV 05-16 12:00 → 3EAST 05-16 12:51
PROVIDERS: Hospitalist; Physician Assistant
PROC: 0H91XZZ Drainage of Face Skin, External Approach (ICD-10-PCS; principal; 2017-05-16)
DX: T85.694A Other mechanical complication of insulin pump, initial encounter (principal); Y84.8 Other medical procedures as the cause of abnormal reaction of the patient, or of later complication, without mention of misadventure at the time of the procedure; E10.10 Type 1 diabetes mellitus with ketoacidosis without coma; E10.43 Type 1 diabetes mellitus with diabetic autonomic (poly)neuropathy; K31.84 Gastroparesis; L03.211 Cellulitis of face; L02.01 Cutaneous abscess of face; F11.23 Opioid dependence with withdrawal; E86.0 Dehydration; G89.29 Other chronic pain; I10 Essential (primary) hypertension; N28.9 Disorder of kidney and ureter, unspecified; E10.42 Type 1 diabetes mellitus with diabetic polyneuropathy; Z96.41 Presence of insulin pump (external) (internal); E10.610 Type 1 diabetes mellitus with diabetic neuropathic arthropathy; F41.9 Anxiety disorder, unspecified; K21.9 Gastro-esophageal reflux disease without esophagitis; Z79.4 Long term (current) use of insulin; Z86.14 Personal history of Methicillin resistant Staphylococcus aureus infection; Z89.422 Acquired absence of other left toe(s)
CPT/HCPCS: 80048; 80053; 80202; 81003; 82010; 82948; 83690; 83735; 84484; 85025; 85027; 87040; 93005; 99281; 99285; J1170; J1630; J1650; J1815; J1956; J2270; J2405; J2765; J3010; J3370; J7030; S0030

== ENCOUNTER 2017-09-09 19:20 | Emergency (ER) | payer OTHER ==
[~2017-09-09] VITALS: Ht 170.2 cm; Wt 89.5 kg
[~2017-09-09 19:20] MED LIST changes: +BACTRIM,SEPT1 TABLE1 PO
[2017-09-09] MEDS ORDERED: MOTRIN800 MG PO (20:50)
[2017-09-09 21:40] VITALS: BP 134/99
== END 2017-09-09 21:41 | disposition home or self-care (01) ==
LOC: EME 19:20
DX: S93.402A Sprain of unspecified ligament of left ankle, initial encounter (principal); S80.02XA Contusion of left knee, initial encounter; W01.0XXA Fall on same level from slipping, tripping and stumbling without subsequent striking against object, initial encounter; K21.9 Gastro-esophageal reflux disease without esophagitis; E11.43 Type 2 diabetes mellitus with diabetic autonomic (poly)neuropathy; Z79.891 Long term (current) use of opiate analgesic; Z88.1 Allergy status to other antibiotic agents
CPT/HCPCS: 73564; 73610; 99281; 99283